=== PATIENT | male | born 1980 | race Two or more races ===

== ENCOUNTER 2020-07-22 10:14 | Emergency (ER) | payer MEDICAID, OTHER ==
[~2020-07-22] VITALS: Ht 165.1 cm; Wt 88.5 kg
[2020-07-22 11:10] LABS: Basophils # (auto) 0 10 ^3/uL (0-0.2); Basophils % (auto) 0.6 % (0.0-2.0); Eosinophils # (auto) 0.1 10 ^3/uL (0-0.8); Eosinophils % (auto) 1.9 % (0.0-7.0); Hematocrit 46.3 % (41.0-53.0); Lymphocytes # (auto) 1.9 10 ^3/uL (0.4-5.4); Lymphocytes % (auto) 28.4 % (10.0-50.0); Mean Corpuscular Hemoglobin 30.4 pg (28.0-32.0); Mean Corpuscular Hgb Conc. 34.4 g/dL (32.0-36.0); Mean Corpuscular Volume 88.2 fL (80.0-100.0); Monocytes # (auto) 0.3 10 ^3/uL (0-1.3); Monocytes % (auto) 4.7 % (0.0-12.0); Neutrophils # (auto) 4.2 10 ^3/uL (1.6-8.6); Neutrophils % (auto) 64.4 % (37.0-80.0); Platelet Count (auto) 240 10^3/uL (140-450); Red Blood Cells 5.25 10^6/uL (4.5-5.90); Red Cell Distribution Width 12.7 % (11.8-14.3); White Blood Cell 6.6 10^3/uL (4.4-10.8)
[2020-07-22 11:22] LABS: Calcium 9.2 mg/dL (8.5-10.1); Chloride 107 mmol/L (98-107); Potassium 4.2 mmol/L (3.5-5.1); Sodium 137 mmol/L (136-145)
[2020-07-22 11:31] LABS: Alanine Aminotransferase 23 U/L (16-61); Albumin 4.3 g/dL (3.4-5.0); Alkaline Phosphatase 66 U/L (45-117); Anion Gap 4 (5-15); Aspartate Aminotransferase 17 U/L (15-37); BUN/Creatinine Ratio 16.7; Bilirubin, Total 0.9 mg/dL (0.2-1.0); Blood Urea Nitrogen 12 mg/dL (7-18); Carbon Dioxide 26 mmol/L (21-32); GFR African American 156 mL/min; GFR Non-African American 129 mL/min; Glucose 91 mg/dL (74-106); Magnesium 2.2 mg/dL (1.6-2.6); Total Protein 7.8 g/dL (6.4-8.2)
[2020-07-22 12:45] VITALS: BP 130/89
== END 2020-07-22 13:07 | disposition home or self-care (01) ==
LOC: ER 10:14
DX: R07.89 Other chest pain (principal); Z87.442 Personal history of urinary calculi
CPT/HCPCS: 36415; 71046; 80053; 83735; 84484; 85025; 93005